=== PATIENT | male | born 1955 | race African-American/Black ===

== ENCOUNTER 2018-11-06 10:19 | Emergency (ER) | payer OTHER ==
[2018-11-06 10:25] VITALS: BMI 26.9
--- NOTE | 2018-11-06 10:37 | PDOC ---
History of Present Illness <Pennie Beck - Last Filed: 11/06/18 13:43> - History of Present Illness Initial Comments: 11/06/18 12:55 The patient is a 63 year old male who denies a past medical history who presents for evaluation of lightheadedness and abdominal pain. The patient reports a 1 month history of poorly described RUQ abdominal pain as well as right shoulder pain. Has been followed on an outpatient basis by his primary care provider for these symptoms. However he noted that he was lightheaded today prompting his presentation to the ED for further evaluation. He otherwise denies fevers, chills, SOB, chest pain, nausea, vomiting, or changes with urination or bowel movements. <Piero Kelly - Last Filed: 11/06/18 13:59> - General Chief Complaint: Lightheaded Stated Complaint: NECK / SIDE PAIN Time Seen by Provider: 11/06/18 10:36 Past History <Pennie Beck - Last Filed: 11/06/18 13:43> - Suicide/Smoking/Psychosocial Hx Smoking History: Current every day smoker Number of Cigarettes Smoked Daily: 10 Information on smoking cessation initiated: No Hx Alcohol Use: No Drug/Substance Use Hx: No <Piero Kelly - Last Filed: 11/06/18 13:59> - Past Medical History Allergies/Adverse Reactions: Allergies Allergy/AdvReac Type Severity Reaction Status Date / Time No Known Allergies Allergy Verified 11/06/18 10:22 Home Medications: Ambulatory Orders Haloperidol Decanoate [Haldol Decanoate 50] 50 mg IM ASDIR 11/06/18 Review of Systems - Review of Systems Comments:: 11/06/18 12:57 Constitutional: No fevers, chills, fatigue, malaise HEENT: No Rhinorrhea, nasal congestion, visual changes Cardiovascular: Lightheadedness. No chest pain, syncope, palpitations, Respiratory: No Cough, SOB, Hemoptysis, Gastrointestinal: RUQ abdominal pain. No Nausea, Vomiting, Constipation, Diarrhea, Melena Genitourinary: No Dysuria, Frequency, Urgency, Hesitancy, Hematuria, Flank pain Musculoskeletal: Right shoulder pain. No Myalgia, arthralgia Skin: No rashes, itching, bruising, pallor Neurologic: No Headache, Dizziness, Numbness, Weakness, or Tingling Psychiatric: No Hallucinations. No SI or HI <Piero Kelly - Last Filed: 11/06/18 13:59> *Physical Exam - Vital Signs Last Vital Signs Temp Pulse Resp BP Pulse Ox 97.3 F L 84 17 125/81 99 11/06/18 11:00 11/06/18 11:00 11/06/18 10:22 11/06/18 11:00 11/06/18 11:00 <Pennie Beck - Last Filed: 11/06/18 13:43> - Vital Signs Last Vital Signs Temp Pulse Resp BP Pulse Ox 97.5 F L 93 H 17 118/68 99 11/06/18 10:22 11/06/18 10:22 11/06/18 10:22 11/06/18 10:22 11/06/18 10:22 - Physical Exam Comments: 11/06/18 12:58 General Appearance: Nourished. No Apparent Distress HEENT: EOMI, ZAHIRA. No Pharyngeal Erythema, Tonsillar Exudate, Tonsillar Erythema Neck: No Cervical Lymphadenopathy Respiratory/Chest: Lungs Clear, Normal Breath Sounds. No Crackles, Rales, Rhonchi, Wheezing Cardiovascular: Regular Rhythm, Regular Rate. No Murmur, Gallops, Rubs Gastrointestinal/Abdominal: Normal Bowel Sounds, Soft. Mild RUQ discomfort with palpation. No Guarding, Rebound, Musculoskeletal: No CVA Tenderness Extremity: Normal Capillary Refill Integumentary: Normal Color, Dry, Warm Neurologic: bobbin winder II-XII NML intact, Fully Oriented, Alert, Normal Mood/Affect, Normal Response, Normal Finger to Nose and Heel to [place] <Piero Kelly - Last Filed: 11/06/18 13:59> ED Treatment Course - LABORATORY CBC & Chemistry Diagram: 11/06/18 11:08 11/06/18 11:08 - ADDITIONAL ORDERS Additional order review: Laboratory Results 11/06/18 11/06/18 11:08 11:08 Sodium 138 Potassium 3.7 Chloride 102 Carbon Dioxide 30 Anion Gap 6 L BUN 13.3 Creatinine 1.2 Est GFR (CKD-EPI)AfAm 73.11 Est GFR (CKD-EPI)NonAf 63.08 Random Glucose 134 H Calcium 8.8 Total Bilirubin 0.4 AST 15 ALT 18 Alkaline Phosphatase 65 Creatine Kinase 69 Troponin I < 0.02 Total Protein 8.1 Albumin 3.9 Lipase 149 Urine Color Yellow Urine Appearance Clear Urine pH 5.5 Ur Specific [place] 1.004 L Urine Protein Negative Urine Glucose (UA) Negative Urine Ketones Negative Urine Blood Negative Urine Nitrite Negative Urine Bilirubin Negative Urine Urobilinogen 0.2 Ur Leukocyte Esterase Negative 11/06/18 11:08 RBC 5.29 MCV 72.6 L MCHC 31.0 L RDW 13.7 MPV 6.7 L Neutrophils % 44.9 Lymphocytes % 41.9 H Monocytes % 8.6 Eosinophils % 3.5 Basophils % 1.1 - Medications Given in the ED: ED Medications Discontinued Medications Generic Name Dose Route Start Last Admin Trade Name Freq PRN Reason Stop Dose Admin Acetaminophen 650 mg 11/06/18 11:42 11/06/18 11:47 Tylenol - PO 11/06/18 11:43 650 mg ONCE ONE Administration Sodium Chloride 1,000 mls @ 1,000 mls/hr 11/06/18 11:04 11/06/18 11:05 Normal Saline - IV 11/06/18 12:03 1,000 mls/hr ASDIR STA Administration <Pennie Beck - Last Filed: 11/06/18 13:43> - LABORATORY CBC & Chemistry Diagram: 11/06/18 11:08 11/06/18 11:08 <Piero Kelly - Last Filed: 11/06/18 13:59> Medical Decision Making - Medical Decision Making 11/06/18 12:58 The patient is a 63 year old male who denies a past medical history who presents for evaluation of lightheadedness and abdominal pain. Differential includes but is not limited to: ACS, Arrythmia, Cholecysitis, infectious, Metabolic Derangement. Given the patient's history and physical exam, we will obtain a cbc, cmp, troponin, ekg, ua, gallbladder US to evaluate further. We will treat with iv fluids and continue to monitor and reassess while here in the ED. 11/06/18 13:58 CBC, cmp, troponin, ua were unremarkable. Gallbladder US is unremarkable as read by our radiologist. The patient was reassessed and reports improvement in their symptoms. We are comfortable discharging the patient home in stable condition. Patient and family made aware of impression and plan, return precautions discussed including but not limited to worsening pain or symptoms, fevers, or signs of infection, chest pain, respiratory distress, inability to tolerate oral intake, dehydration, syncope, or neurologic changes. The patient is to follow up with PMD as recommended within 1 week, follow up information provided and the patient will call for an appointment. The patient is to take medications as instructed for duration of time and continue with supportive care , avoid triggers and precipitants. Patient is safe for outpatient follow-up. <Piero Kelly - Last Filed: 11/06/18 13:59> *DC/Admit/Observation/Transfer - Discharge Dispostion Decision to Admit order: No <Pennie Beck - Last Filed: 11/06/18 13:43> <Piero Kelly - Last Filed: 11/06/18 13:59> Diagnosis at time of Disposition: Lightheadedness - Discharge Dispostion Disposition: HOME Condition at time of disposition: Good - Referrals Referrals: Deshaun Salazar MD [Primary Care Provider] - - Patient Instructions Printed Discharge Instructions: DI for Dizziness-Nonvertigo Additional Instructions: You came to the ED because your were feeling dizzy and having pain in your abdomen. We did blood work and an ultrasound of your abdomen, which were normal. you should call Dr. Salazar today to make a follow up appointment for early next week. Return to the ED for severe pain, severe nausea and vomiting, fever, passing out, chest pain or shortness of breath, or other new or worsening symptoms.
[2018-11-06 11:00] VITALS: BP 125/81; PULSE 84; TEMP 97.3
[2018-11-06] MEDS ORDERED: SODIUM CHLORIDE 1,000 ML IV STA (11:04)
[2018-11-06 11:30] LABS: BASO % 1.1 % (0-2.0); EOS % 3.5 % (0-4.5); HEMATOCRIT 38.4 % (35.4-49); HEMOGLOBIN 11.9 GM/dL (11.7-16.9); LYMPH % 41.9 % (8-40); MCH 22.5 pg (25.7-33.7); MEAN CELL VOLUME 72.6 fl (80-96); MEAN PLT VOLUME 6.7 fl (7.5-11.1); MONO % 8.6 % (3.8-10.2); NEUT % 44.9 % (42.8-82.8); PLATELET COUNT 260 K/MM3 (134-434); RBC 5.29 M/mm3 (4.00-5.60); RDW 13.7 % (11.9-15.9); WHITE BLOOD COUNT 3.5 K/mm3 (4.0-10.0)
[2018-11-06 11:35] LABS: PH,URINE 5.5 (5.0-8.0); URINE APPEARANCE CLEAR; URINE BILIRUBIN NEGATIVE (NEGATIVE); URINE COLOR YELLOW; URINE GLUCOSE (UA) NEGATIVE (NEGATIVE); URINE KETONE NEGATIVE (NEGATIVE); URINE LEUK ESTERASE NEGATIVE (NEGATIVE); URINE NITRITE NEGATIVE (NEGATIVE); URINE PROTEIN NEGATIVE (NEGATIVE); URINE UROBILINOGEN 0.2 mg/dL (0.2-1.0)
[2018-11-06] MEDS ORDERED: ACETAMINOPHEN 325 MG TABLET (FP) PO ONE (11:42)
[2018-11-06 11:52] LABS: ALBUMIN 3.9 g/dl (3.4-5.0); ALK PHOS 65 U/L (45-117); ANION GAP 6 MMOL/L (8-16); BILIRUBIN,TOTAL 0.4 mg/dL (0.2-1); BLOOD UREA NITROGEN 13.3 mg/dL (7-18); CALCIUM 8.8 mg/dL (8.5-10.1); CHLORIDE 102 mmol/L (98-107); CO2 30 mmol/L (21-32); CREATININE 1.2 mg/dL (0.55-1.3); GLUCOSE,RANDOM 134 mg/dL (74-106); LIPASE 149 U/L (73-393); POTASSIUM 3.7 mmol/L (3.5-5.1); SGOT/AST 15 U/L (15-37); SGPT/ALT 18 U/L (13-61); SODIUM 138 mmol/L (136-145); TOT PROT 8.1 g/dl (6.4-8.2)
--- NOTE | 2018-11-07 12:25 | EKG ---
Test Reason : Blood Pressure : / mmHG Vent. Rate : 084 BPM Atrial Rate : 084 BPM P-R Int : 148 ms QRS Dur : 088 ms QT Int : 366 ms P-R-T Axes : 047 -09 025 degrees QTc Int : 432 ms SINUS RHYTHM WITH OCCASIONAL PREMATURE VENTRICULAR COMPLEXES OTHERWISE NORMAL ECG WHEN COMPARED WITH ECG OF 28-DEC-2008 13:35, PREMATURE VENTRICULAR COMPLEXES ARE NOW PRESENT Confirmed by MD NELLIE, JANE ([id number]) on 11/07/2018 12:25:20 PM Referred By: Confirmed By:JANE BALLARD MD
--- NOTE | 2018-11-08 08:14 | PDOC ---
Documentation entered by Harjit Chadwick SCRIBE, acting as scribe for Pennie Beck MD. Pennie Beck MD: This documentation has been prepared by the Farrukh brewer Elijah, SCRIBE, under my direction and personally reviewed by me in its entirety. I confirm that the documentation accurately reflects all work, treatment, procedures, and medical decision making performed by me. Attending Attestation - Resident Resident Name: Piero Kelly - ED Attending Attestation I have performed the following: I have examined & evaluated the patient, The case was reviewed & discussed with the resident, I agree w/resident's findings & plan - HPI HPI: 11/06/18 13:44 Patient is a 63 year old male with no reported significant past medical history who presents to the ED with pain in the neck and abdominals and lightheadedness. The patient reports that the pain in the abdominal has occurred for over a month. The patient reports that the lightheadedness began this morning and prompted the visit to the ED. The patient associated intermittent dizziness associated with the lightheadedness. Denies SOB, chest pain, fever, chills, Changes in bowel movement, dysuria, nausea and vomiting. Allergies: NKA - Physicial Exam PE: 11/06/18 13:43 GENERAL: Awake, alert, and fully oriented, in no acute distress HEAD: No signs of trauma EYES: PERRLA, EOMI, sclera anicteric, conjunctiva clear ENT: Auricles normal inspection, hearing grossly normal, nares patent, oropharynx clear without exudates. Moist mucosa NECK: Normal ROM, supple, no lymphadenopathy, JVD, or masses LUNGS: Breath sounds equal, clear to auscultation bilaterally. No wheezes, and no crackles HEART: Regular rate and rhythm, normal S1 and S2, no murmurs, rubs or gallops ABDOMEN: Soft, nontender, normoactive bowel sounds. No guarding, no rebound. No masses EXTREMITIES: Normal range of motion, no edema. No clubbing or cyanosis. No cords, erythema, or tenderness NEUROLOGICAL: Cranial nerves II through XII grossly intact. Normal speech, normal gait SKIN: Warm, Dry, normal turgor, no rashes or lesions noted. - Medical Decision Making 11/08/18 08:13 Pt presents to the ED complaining of lightheadness and RUQ pain for one month. Labs within normal limits. RUQ US negative. Will discharge home.
== END 2018-11-06 14:36 | disposition home or self-care (01) ==
LOC: JER 10:19
PROC: 3E0337Z Introduction of Electrolytic and Water Balance Substance into Peripheral Vein, Percutaneous Approach (ICD-10-PCS; principal; 2018-11-06)
DX: R42 Dizziness and giddiness (principal); F17.210 Nicotine dependence, cigarettes, uncomplicated
CPT/HCPCS: 36415; 76705-TC; 80053; 81003; 82550; 83690; 84484; 85025; 93005; 93010; 96360; 99284-25; J7030

== ENCOUNTER 2019-02-24 09:53 | Emergency (ER) | payer OTHER ==
[2019-02-24 09:59] VITALS: BP 132/84; PULSE 97; TEMP 98.4; BMI 27.8
[2019-02-24] MEDS ORDERED: LIDOCAINE 5% TOPICAL PATCH TP ONE (10:47)
[2019-02-24] MEDS ORDERED: KETOROLAC TROMETHAMINE 60 MG/2 ML VIAL IM ONE (10:47)
--- NOTE | 2019-02-24 10:48 | PDOC ---
History of Present Illness - General Chief Complaint: Back Pain Stated Complaint: NECK/LOWER BACK PAIN Time Seen by Provider: 02/24/19 10:06 History Source: Patient Exam Limitations: No Limitations Past History - Travel Traveled outside of the country in the last 30 days: No Close contact w/someone who was outside of country & ill: No - Past Medical History Allergies/Adverse Reactions: Allergies Allergy/AdvReac Type Severity Reaction Status Date / Time No Known Allergies Allergy Verified 02/24/19 09:59 Home Medications: Ambulatory Orders Haloperidol Decanoate [Haldol Decanoate 50] 50 mg IM ASDIR 11/06/18 Dicyclomine HCl [Bentyl -] 20 mg PO TID 02/24/19 Ibuprofen 600 mg PO Q6H #30 tablet 02/24/19 Methocarbamol [Robaxin -] 500 mg PO BID #14 tablet 02/24/19 COPD: No Psychiatric Problems: Yes - Surgical History Cardiac Surgery: No - Immunization History Immunization Up to Date: No - Psycho Social/Smoking Cessation Hx Smoking History: Current every day smoker Number of Cigarettes Smoked Daily: 10 Information on smoking cessation initiated: No Hx Alcohol Use: No Drug/Substance Use Hx: No Review of Systems - Review of Systems Able to Perform ROS?: Yes Comments:: 02/24/19 12:08 CONSTITUTIONAL: Absent: fever, chills, diaphoresis, generalized weakness, malaise, loss of appetite GASTROINTESTINAL: Absent: abdominal pain, abdominal distension, nausea, vomiting, diarrhea, constipation, melena, hematochezia GENITOURINARY: Absent: dysuria, frequency, urgency, hesitancy, hematuria, flank pain, genital pain MUSCULOSKELETAL: Present: low back pain Absent: arthralgia, joint swelling SKIN: Absent: rash, itching, pallor NEUROLOGIC: Absent: headache, focal weakness or paresthesias, dizziness, unsteady gait, seizure, mental status changes, bladder or bowel incontinence PSYCHIATRIC: Absent: anxiety, depression, suicidal or homicidal ideation, hallucinations. Is the patient limited Mongolian proficient: No *Physical Exam - Vital Signs Last Vital Signs Temp Pulse Resp BP Pulse Ox 98.4 F 97 H 19 132/84 100 02/24/19 09:57 02/24/19 09:57 02/24/19 09:57 02/24/19 09:57 02/24/19 09:57 - Physical Exam Comments: 02/24/19 12:08 GENERAL: Well developed, well nourished. Awake and alert. No acute distress. HEENT: Normocephalic, atraumatic. PERRLA, EOMI. No conjunctival pallor. Sclera are non- icteric. Moist mucous membranes. Oropharynx is clear. NECK: Supple. Full ROM. No JVD. Carotid pulses 2+ and symmetric, without bruits. No thyromegaly. No lymphadenopathy. CARDIOVASCULAR: Regular rate and rhythm. No murmurs, rubs, or gallops. Distal pulses are 2+ and symmetric. PULMONARY: No evidence of respiratory distress. Lungs clear to auscultation bilaterally. No wheezing, rales or rhonchi. ABDOMINAL: Soft. Non-tender. Non-distended. No rebound or guarding. No organomegaly. Normoactive bowel sounds. MUSCULOSKELETAL TTP of the B/L paraspinous muscles, L1-L5, with palpable knot consistent with muscle spasm. (-) straight leg raise testing b/l. (-) midline tenderness. TTP of the R trapezius muscles with associated pain in the occiput. Normal range of motion at all joints. No bony deformities or tenderness. No CVA tenderness. EXTREMITIES: No cyanosis. No clubbing. No edema. No calf tenderness. SKIN: Warm and dry. Normal capillary refill. No rashes. No jaundice. NEUROLOGICAL: Alert, awake, appropriate. Cranial nerves 2-12 intact. No deficits to light touch and temperature in face, upper extremities and lower extremities. No motor deficits in the in face, upper extremities and lower extremities. Normoreflexic in the upper and lower extremities. Normal speech. Toes are down- going bilaterally. Gait is normal without ataxia. PSYCHIATRIC: Cooperative. Good eye contact. Appropriate mood and affect. Medical Decision Making - Medical Decision Making 02/24/19 12:10 The patient is a 63-year-old male who takes Haldol, but is unsure of his past medical history, presents to the ER today for back spasms for the last 3 days. He states that he also has pain in his neck and it hurts to move his neck. Denies fall or trauma. Denies fevers, chills, numbness and tingling and weakness to the affected extremities, saddle anesthesia and bladder bowel incontinence. A/P: Back pain -Pt with TTP of the B/L paraspinous muscles, L1-L5, with palpable knot consistent with muscle spasm. (-) straight leg raise testing b/l. (-) midline tenderness. TTP of the R trapezius muscles with associated pain in the occiput -No trauma, or fever. No saddle anesthesia or bladder/bowel incontinence. No CVA tenderness. -Pt is neurologically intact on exam with no focal findings. -Toradol, lidocaine patch given with relief of symptoms -DC home. Ortho follow up given for if symptoms do not resolve. -I discussed the physical exam findings, ancillary test results and final diagnoses with the patient. I answered all of the patient's questions. The patient was satisfied with the care received and felt comfortable with the discharge plan and treatment plan. The Patient agrees to follow up with the primary care physician/specialist within 24-72 hours. Return precautions were given. 02/24/19 13:20 UA is negative Discharge - Discharge Information Problems reviewed: Yes Clinical Impression/Diagnosis: Neck pain Back pain Qualifiers: Back pain location: low back pain Chronicity: acute Back pain laterality: bilateral Sciatica presence: without sciatica Qualified Code(s): M54.5 - Low back pain Condition: Stable Disposition: HOME - Admission No - Additional Discharge Information Prescriptions: Ibuprofen 600 mg PO Q6H #30 tablet Methocarbamol [Robaxin -] 500 mg PO BID #14 tablet - Follow up/Referral Referrals: Deshaun Salazar MD [Primary Care Provider] - - Patient Discharge Instructions Patient Printed Discharge Instructions: DI for Low Back Pain Additional Instructions: You have low back pain due to a muscle spasm. Please take ibuprofen 800 mg 3 times a day not to exceed 3000 mg a day. You were also prescribed Robaxin. Please take this medication twice a day. Then take the medication before you go to bed. Do not drive after taking this medication as it may make you sleepy. You may use warm compresses on your back to help with her symptoms. Please follow-up with your primary care doctor. If your symptoms do not resolve in 3-5 days, follow-up with orthopedics. A referral has been provided for you. Return to the emergency department if you have worsening back pain, bladder or bowel incontinence, numbness and tingling in her legs, changes in the way you walk, or any new or worsening symptoms. Please call [phone] for your urine results later today. - Post Discharge Activity
[2019-02-24] MEDS ORDERED: LIDOCAINE 5% TOPICAL PATCH ONE (11:19)
[2019-02-24] MEDS ORDERED: KETOROLAC TROMETHAMINE 60 MG/2 ML VIAL ONE (11:19)
[2019-02-24 13:06] LABS: PH,URINE 5.5 (5.0-8.0); URINE APPEARANCE Clear; URINE BILIRUBIN Negative (NEGATIVE); URINE COLOR Yellow; URINE GLUCOSE (UA) Negative (NEGATIVE); URINE KETONE Negative (NEGATIVE); URINE LEUK ESTERASE Negative (NEGATIVE); URINE NITRITE Negative (NEGATIVE); URINE PROTEIN Trace (NEGATIVE); URINE UROBILINOGEN 0.2 mg/dL (0.2-1.0)
[2019-02-24 13:19] LABS: HYALINE CASTS 1+ /lpf (0-8)
[2019-02-24] MEDS ORDERED: LIDOCAINE PATCH REMOVAL MC SCH (22:00)
== END 2019-02-24 12:42 | disposition home or self-care (01) ==
LOC: JERFT 09:53
PROC: 3E0233Z Introduction of Anti-inflammatory into Muscle, Percutaneous Approach (ICD-10-PCS; principal; 2019-02-24)
DX: M54.5 Low back pain (principal); M54.2 Cervicalgia
CPT/HCPCS: 81003; 87086; 99281-25

== ENCOUNTER 2019-12-01 04:55 | Day surgery (SDC) | payer OTHER ==
[2019-12-01 08:35] VITALS: BMI 24.7
[2019-12-01 09:54] VITALS: TEMP 97.4
[2019-12-01 10:49] VITALS: BP 143/83; PULSE 73
--- NOTE | 2019-12-03 13:05 | PATH ---
Surgical Pathology Report Patient Name: SHYANNE TOWNSEND [facility]. Rec. #: [id number] /Age/Gender: 1955 (Age: 64) / M Account: [id number] Location: U-ENDOSCOPY Taken: 12/01/2019 Received: 12/01/2019 Reported: 12/03/2019 Physicians: Mariajose Thomas M.D. Specimen(s) Received A: SECOND PORTION DUODENUM AND DUODENAL BULB B: ANTRUM C: GE JUNCTION D: MID ESOPHAGUS E: RIGHT COLON POLYP Clinical History Epigastric pain, colon cancer screening Postoperative diagnosis: Hiatal hernia with reflux, right colon polyp Final Diagnosis A. SECOND PORTION DUODENUM AND DUODENAL BULB, BIOPSY: DUODENAL MUCOSA WITH FOCAL NONSPECIFIC CHRONIC DUODENITIS. NO HISTOLOGIC EVIDENCE OF INTRAEPITHELIAL LYMPHOCYTOSIS. B. ANTRUM, BIOPSY: GASTRIC MUCOSA WITH CHRONIC GASTRITIS. IMMUNOSTAIN FOR H. PYLORI IS NEGATIVE. NEGATIVE FOR INTESTINAL METAPLASIA. C. GE JUNCTION, BIOPSY: SQUAMOUS MUCOSA WITH CHANGES CONSISTENT WITH REFLUX ESOPHAGITIS, MILD. NEGATIVE FOR INTESTINAL METAPLASIA. D. MID ESOPHAGUS, BIOPSY: ESOPHAGEAL MUCOSA WITH NO SIGNIFICANT PATHOLOGIC CHANGE. NO HISTOLOGIC EVIDENCE OF EOSINOPHILIC ESOPHAGITIS. E. RIGHT COLON POLYP, POLYPECTOMY: TUBULAR ADENOMA. Electronically Signed Nydia Ayala M.D. Gross Description A. Received in formalin, labeled "biopsy second portion of duodenum and duodenal bulb" are 3 chandra, irregular portions of soft tissue ranging from 0.3-0.5 cm. in greatest dimension. The specimens are submitted in toto in one cassette. B. Received in formalin, labeled "biopsy antrum" are 4 chandra, irregular portions of soft tissue ranging from 0.3-0.4 cm. in greatest dimension. The specimens are submitted in toto in one cassette. C. Received in formalin, labeled "biopsy GE junction" are 2 chandra, irregular portions of soft tissue measuring 0.2 and 0.6 cm. in greatest dimension. The specimens are submitted in toto in one cassette. D. Received in formalin, labeled "biopsy mid esophagus" are 2 chandra, irregular portions of soft tissue measuring 0.3 and 0.4 cm. in greatest dimension. The specimens are submitted in toto in one cassette. E. Received in formalin, labeled "biopsy right colon polyp" are 6 chandra, irregular portions of soft tissue ranging from 0.2-0.5 cm. in greatest dimension. The specimens are submitted in toto in one cassette. 12/01/2019 [facility]12/01/2019
== END 2019-12-01 10:48 | disposition home or self-care (01) ==
LOC: JASU-ENDO 04:55
PROVIDERS: ATTEND Internal Medicine Gastroenterology
PROC: 0DB68ZX Excision of Stomach, Via Natural or Artificial Opening Endoscopic, Diagnostic (ICD-10-PCS; 2019-12-01)
PROC: 0DB28ZX Excision of Middle Esophagus, Via Natural or Artificial Opening Endoscopic, Diagnostic (ICD-10-PCS; 2019-12-01)
PROC: 0DBK8ZX Excision of Ascending Colon, Via Natural or Artificial Opening Endoscopic, Diagnostic (ICD-10-PCS; 2019-12-01)
PROC: 0DB38ZX Excision of Lower Esophagus, Via Natural or Artificial Opening Endoscopic, Diagnostic (ICD-10-PCS; principal; 2019-12-01 09:00)
DX: Z12.11 Encounter for screening for malignant neoplasm of colon (principal); Z86.010 Personal history of colon polyps; D12.2 Benign neoplasm of ascending colon; K21.9 Gastro-esophageal reflux disease without esophagitis; K44.9 Diaphragmatic hernia without obstruction or gangrene; K29.50 Unspecified chronic gastritis without bleeding; K29.80 Duodenitis without bleeding; I10 Essential (primary) hypertension; J44.9 Chronic obstructive pulmonary disease, unspecified
CPT/HCPCS: 88305-TC; 88342-TC

== ENCOUNTER 2021-08-14 14:57 | Observation (INO) | payer OTHER ==
[2021-08-14 16:54] LABS: BASO % 0.4 % (0-2.0); EOS % 0.2 % (0-4.5); HEMATOCRIT 39.1 % (35.4-49); HEMOGLOBIN 12.1 GM/dL (11.7-16.9); LYMPH % 28.3 % (8-40); MCH 22.1 pg (25.7-33.7); MCHC 30.9 g/dl (32.0-35.9); MEAN CELL VOLUME 71.4 fl (80-96); MEAN PLT VOLUME 6.7 fl (7.5-11.1); MONO % 10.6 % (3.8-10.2); NEUT % 60.5 % (42.8-82.8); PLATELET COUNT 287 10^3/uL (134-434); RBC 5.48 M/mm3 (4.00-5.60); RDW 14.2 % (11.9-15.9); WHITE BLOOD COUNT 4.5 K/mm3 (4.0-10.0)
[2021-08-14 17:19] LABS: CALCIUM 8.8 mg/dL (8.5-10.1)
[2021-08-14 17:20] LABS: ALBUMIN 3.9 g/dl (3.4-5.0)
[2021-08-14 17:23] LABS: CREATININE 1.4 mg/dL (0.55-1.3)
[2021-08-14 17:24] LABS: BILIRUBIN,TOTAL 0.4 mg/dL (0.2-1); TOT PROT 8.7 g/dl (6.4-8.2)
[2021-08-14 19:41] LABS: PH,URINE 6.5 (5.0-8.0); URINE APPEARANCE CLEAR; URINE BILIRUBIN NEGATIVE (NEGATIVE); URINE COLOR YELLOW; URINE GLUCOSE (UA) NEGATIVE (NEGATIVE); URINE KETONE NEGATIVE (NEGATIVE); URINE LEUK ESTERASE NEGATIVE (NEGATIVE); URINE NITRITE NEGATIVE (NEGATIVE); URINE PROTEIN NEGATIVE (NEGATIVE); URINE UROBILINOGEN 0.2 mg/dL (0.2-1.0)
[2021-08-14] MEDS ORDERED: POLYETHYLENE GLYCOL (HEALTHYLAX) 3350 17 GM PACKET PO PRN (19:45)
[2021-08-14] MEDS ORDERED: ACETAMINOPHEN 325 MG TABLET (FP) PO PRN (19:45)
[2021-08-14 19:52] LABS: PHENCYCLIDINE,URINE NEGATIVE (NEGATIVE)
[2021-08-14 19:53] LABS: METHADONE, UR NEGATIVE (NEGATIVE); OPIATES, URI NEGATIVE (NEGATIVE); URINE BARBITURATES NEGATIVE (NEGATIVE); URINE BENZODIAZEPINES NEGATIVE (NEGATIVE)
[2021-08-14 19:55] LABS: COCAINE, UR POSITIVE (NEGATIVE); URINE AMPHETAMINES NEGATIVE (NEGATIVE)
[2021-08-14] MEDS ORDERED: diphenhydrAMINE HCL 25 MG CAPSULE (FP) PO ONE (22:05)
[2021-08-14] MEDS ORDERED: ATORVASTATIN CA 10 MG TABLET (FP) ONE (22:05)
[2021-08-14] MEDS: ATORVASTATIN CA 10 MG TABLET (FP) PO SCH (22:11)
[2021-08-14] MEDS: diphenhydrAMINE HCL 25 MG CAPSULE (FP) PO SCH (22:11)
[2021-08-15 00:57] VITALS: BMI 23.6
[2021-08-15] MEDS: PANTOPRAZOLE 40 MG TABLET PO SCH (09:11)
[2021-08-15] MEDS: NIFEdipine E.R. 30 MG TABLET PO SCH (09:11)
[2021-08-15] MEDS ORDERED: PATIENT'S OWN MEDICATION (NON-FORMULARY) (Mag Carb/Aluminum Hydrox/Algin [Gaviscon Liquid] PO PRN (10:47)
[2021-08-15] MEDS: diphenhydrAMINE HCL 25 MG CAPSULE (FP) PO SCH (21:45)
[2021-08-15] MEDS: ATORVASTATIN CA 10 MG TABLET (FP) PO SCH (21:45)
[2021-08-16 06:58] LABS: BASO % 0.7 % (0-2.0); EOS % 0.8 % (0-4.5); HEMATOCRIT 34.3 % (35.4-49); HEMOGLOBIN 10.9 GM/dL (11.7-16.9); LYMPH % 53.5 % (8-40); MCH 22.6 pg (25.7-33.7); MCHC 31.9 g/dl (32.0-35.9); MEAN CELL VOLUME 70.8 fl (80-96); MEAN PLT VOLUME 6.5 fl (7.5-11.1); MONO % 14.5 % (3.8-10.2); NEUT % 30.5 % (42.8-82.8); PLATELET COUNT 240 10^3/uL (134-434); RBC 4.84 M/mm3 (4.00-5.60); RDW 13.9 % (11.9-15.9)
[2021-08-16 07:22] LABS: CALCIUM 8.5 mg/dL (8.5-10.1)
[2021-08-16 07:23] LABS: BLOOD UREA NITROGEN 15.6 mg/dL (7-18)
[2021-08-16] MEDS: NIFEdipine E.R. 30 MG TABLET PO SCH (11:07)
[2021-08-16] MEDS: PANTOPRAZOLE 40 MG TABLET PO SCH (11:07)
[2021-08-16] MEDS: diphenhydrAMINE HCL 25 MG CAPSULE (FP) PO SCH (21:28)
[2021-08-16] MEDS: ATORVASTATIN CA 10 MG TABLET (FP) PO SCH (21:28)
[2021-08-17] MEDS: PANTOPRAZOLE 40 MG TABLET PO SCH ×2 (08:56→09:01)
[2021-08-17] MEDS: NIFEdipine E.R. 30 MG TABLET PO SCH ×2 (08:56→09:00)
[2021-08-17 10:04] VITALS: TEMP 98.6
[2021-08-17 15:51] VITALS: BP 115/61; PULSE 64
== END 2021-08-17 17:25 | disposition home or self-care (01) ==
LOC: JER 14:57 → JERBED 19:04 → J4W 23:30
PROVIDERS: ADMIT Hospitalist; ATTEND Internal Medicine
DX: I10 Essential (primary) hypertension (principal); E78.5 Hyperlipidemia, unspecified; D64.9 Anemia, unspecified; N40.0 Benign prostatic hyperplasia without lower urinary tract symptoms; K29.70 Gastritis, unspecified, without bleeding; R55 Syncope and collapse; Z86.79 Personal history of other diseases of the circulatory system; Z87.19 Personal history of other diseases of the digestive system; R93.89 Abnormal findings on diagnostic imaging of other specified body structures; F20.9 Schizophrenia, unspecified; F17.210 Nicotine dependence, cigarettes, uncomplicated
CPT/HCPCS: 36415; 70450-TC; 71045-TC-FY; 80048; 80053; 80307; 81003; 82550; 82962; 83036; 84484; 85025; 87086; 87186; 93005; 93010; 93306-TC; 97116-GP; 97161-GP; 99285-25; C9803-CS; G0378; U0003; U0005